=== PATIENT | female | born 1935 | race Two or more races ===

== ENCOUNTER 2017-06-17 17:13 | Emergency (ER) | payer MEDICARE, OTHER ==
[~2017-06-17] VITALS: Ht 160 cm; Wt 63.0 kg
[2017-06-17] MEDS ORDERED: IV NORMAL SALINE 500ML BAG 500 ML IV ONE (18:15)
[2017-06-17 18:40] LABS: BASO % 0 % (0-3); EOS % 0 % (0-3); HEMATOCRIT 37.1 % (36.0-47.0); HEMOGLOBIN 12.6 g/dL (12.0-15.5); LYMPH # 1.2 x10^3/uL (1.0-4.8); LYMPH % 11 % (24-48); MEAN CORPUSCULAR HEMOGLOBIN 32 pg (25-35); MEAN CORPUSCULAR HGB CONC 34 g/dL (31-37); MEAN CORPUSCULAR VOLUME 93 fL (79-100); MONO % 6 % (0-9); NEUT % 82 % (31-73); PLATELET COUNT 185 x10^3/uL (140-400); RED CELL DISTRIBUTION WIDTH 13.4 % (11.5-14.5); WHITE BLOOD COUNT 10.8 x10^3/uL (4.0-11.0)
[2017-06-17 18:51] LABS: CALCIUM 9.4 mg/dL (8.5-10.1); CREATININE 1.1 mg/dL (0.6-1.0); GFR 47.4
--- NOTE | 2017-06-17 18:52 | PHYS DOC ---
Past Medical History Past Medical History: Diabetes-Type II, GERD, High Cholesterol, Hypertension Past Surgical History: No Surgical History Alcohol Use: None Drug Use: None Adult General Chief Complaint Chief Complaint: HYPERTENSION HPI HPI Patient is a 81 year old female presents with complaints of feeling dizzy and nauseous, she noted her blood pressure was high. Patient denies any pain or focal weakness. By the time of the ED evaluation the patient felt improved and her systolic blood pressure was 167 without any intervention. Patient states she is compliant with her medications Review of Systems Review of Systems Constitutional: Denies fever or chills [] Eyes: Denies change in visual acuity, redness, or eye pain [] HENT: Denies nasal congestion or sore throat [] Respiratory: Denies cough or shortness of breath [] Cardiovascular: No chest pain GI: Denies abdominal pain,, vomiting, bloody stools or diarrhea . Yes to nausea : Denies dysuria or hematuria [] Musculoskeletal: Denies back pain or joint pain [] Integument: Denies rash or skin lesions [] Neurologic: Denies headache, focal weakness or sensory changes. Yes to dizziness Current Medications Current Medications Current Medications Medications (Trade) Dose Ordered Sig/Mitzi Start Time Stop Time Status Last Admin Dose Admin Sodium Chloride 500 ml @ 500 mls/hr 1X ONCE 06/17/17 18:15 06/17/17 19:14 DC 06/17/17 18:48 500 MLS/HR Allergies Allergies Allergies Coded Allergies Type Severity Reaction Last Updated Verified Penicillins Allergy Intermediate 12/02/15 Yes Physical Exam Physical Exam Constitutional: Well developed, well nourished, no acute distress, non-toxic appearance. [] HENT: Normocephalic, atraumatic, bilateral external ears normal, oropharynx dry , no oral exudates, nose normal. [] Eyes: PERRLA, EOMI, conjunctiva normal, no discharge. [] Neck: Normal range of motion, no tenderness, supple, no stridor. No LAD, no meningeal signs Cardiovascular:Heart rate regular rhythm, no murmur, equal pulses, normal perfusion Lungs & Thorax: Bilateral breath sounds clear to auscultation, no tachypnea Abdomen: Bowel sounds normal, soft, no tenderness, no masses, no pulsatile masses. [] Skin: Warm, dry, no erythema, no rash. [] Back: No tenderness, no CVA tenderness. [] Extremities: No tenderness, no cyanosis, no DVT, ROM intact, no edema. [] Neurologic: Alert and oriented X 3, normal motor function,, no focal deficits noted. Patient ambulates in the emergency department with normal gait and without assistance Psychologic: Affect normal, judgement normal, mood normal. [] Current Patient Data Vital Signs Vital Signs Date Time Temp Pulse Resp B/P (MAP) Pulse Ox O2 Delivery O2 Flow Rate FiO2 06/17/17 18:50 76 14 97 06/17/17 17:22 223/93 (136) Room Air Lab Values Laboratory Tests Test 06/17/17 18:29 White Blood Count 10.8 x10^3/uL (4.0-11.0) Red Blood Count 4.00 x10^6/uL (3.50-5.40) Hemoglobin 12.6 g/dL (12.0-15.5) Hematocrit 37.1 % (36.0-47.0) Mean Corpuscular Volume 93 fL (79-100) Mean Corpuscular Hemoglobin 32 pg (25-35) Mean Corpuscular Hemoglobin Concent 34 g/dL (31-37) Red Cell Distribution Width 13.4 % (11.5-14.5) Platelet Count 185 x10^3/uL (140-400) Neutrophils (%) (Auto) 82 % (31-73) H Lymphocytes (%) (Auto) 11 % (24-48) L Monocytes (%) (Auto) 6 % (0-9) Eosinophils (%) (Auto) 0 % (0-3) Basophils (%) (Auto) 0 % (0-3) Neutrophils # (Auto) 8.8 x10^3uL (1.8-7.7) H Lymphocytes # (Auto) 1.2 x10^3/uL (1.0-4.8) Monocytes # (Auto) 0.7 x10^3/uL (0.0-1.1) Eosinophils # (Auto) 0.0 x10^3/uL (0.0-0.7) Basophils # (Auto) 0.0 x10^3/uL (0.0-0.2) Sodium Level 132 mmol/L (136-145) L Potassium Level 4.0 mmol/L (3.5-5.1) Chloride Level 96 mmol/L (98-107) L Carbon Dioxide Level 28 mmol/L (21-32) Anion Gap 8 (6-14) Blood Urea Nitrogen 19 mg/dL (7-20) Creatinine 1.1 mg/dL (0.6-1.0) H Estimated GFR (Cockcroft-Gault) 47.4 BUN/Creatinine Ratio 17 (6-20) Glucose Level 174 mg/dL (70-99) H Calcium Level 9.4 mg/dL (8.5-10.1) Magnesium Level 1.8 mg/dL (1.8-2.4) Total Bilirubin 0.3 mg/dL (0.2-1.0) Aspartate Amino Transferase (AST) 17 U/L (15-37) Alanine Aminotransferase (ALT) 25 U/L (14-59) Alkaline Phosphatase 113 U/L (46-116) Troponin I Quantitative 0.048 ng/mL (0.000-0.055) WM-Yil-B-Type Natriuretic Peptide 144 pg/mL (0-449) Total Protein 7.8 g/dL (6.4-8.2) Albumin 4.0 g/dL (3.4-5.0) Albumin/Globulin Ratio 1.1 (1.0-1.7) Laboratory Tests 06/17/17 18:29 Laboratory Tests 06/17/17 18:29 EKG EKG 1901 SR, 74, no stemi[] Radiology/Procedures Radiology/Procedures CT head: no acute findings CXR: no acute findings[] Course & Med Decision Making Course & Med Decision Making Pertinent Labs and Imaging studies reviewed. (See chart for details) 1943 pt ambulating in the ED in nad, normal gait and no assistance. Pt feels at her baseline and is requesting discharge home. Pt and family ok with discharge home, they agree to follow up with pcp for recheck and re-evaluation [] Dragon Disclaimer Dragon Disclaimer This electronic medical record was generated, in whole or in part, using a voice recognition dictation system. Departure Departure Impression: Primary Impression: Hypertension Additional Impressions: Dizziness Malaise Disposition: HOME, SELF-CARE Condition: IMPROVED Referrals: KULDIP VILLARREAL MD (PCP) Please follow with your PCP in one to 2 days for recheck and reevaluation, please continue to monitor her blood pressures at home and discussed those findings with your doctor and possible need for adjustment to your medication regimen. Patient Instructions: Dizziness, [id number], Hypertension Problem Qualifiers Jillian MCMANUS MD Jun 17, 2017 18:52
--- NOTE | 2017-06-17 18:55 | RAD ---
CT HEAD WO CONTRAST Clinical indications: Hypertensive EMERGENCY, history of hypertension, COMPARISON: None available. Technique: Noncontrast axial cross sectional scanning of the head was performed. PQRS compliance Statement One or more of the following individualized dose reduction techniques were utilized for this study: 1. Automated exposure control 2. Adjustment of the mA and/or kV according to patient size 3. Use of iterative reconstruction technique Findings: No acute intracranial hemorrhage or midline shift or mass-effect or hydrocephalus or extra-axial fluid collection is seen. No focal hypodense area or sulci effacement is seen to indicate an acute infarct or edema radiographically. No skull fracture or pneumocephalus is seen. No opacification of the mastoid sinuses or the paranasal sinuses is seen. The maxillary sinuses are not completely seen in this study. Impression: No acute intracranial abnormality is seen. Electronically signed by: Joe Brooks MD (06/17/2017 6:52 PM) [facility]
[2017-06-17 18:57] LABS: ALBUMIN/GLOBULIN RATIO 1.1 (1.0-1.7); MAGNESIUM 1.8 mg/dL (1.8-2.4); TOTAL BILIRUBIN 0.3 mg/dL (0.2-1.0); TOTAL PROTEIN 7.8 g/dL (6.4-8.2)
[2017-06-17 20:15] VITALS: BP 166/83
--- NOTE | 2017-06-18 07:37 | EKG ---
[facility] [address] [place] [address] Test Date: 2017-06-17 Test Time: 19:00:51 Pat Name: MIGUELINA CABRERA Department: Room: Gender: F Wood Gouger: : 1935 Requested By: Jillian MCMANUS Order Number: [id number] Reading MD: Craig Willard Measurements Intervals [place] Rate: 74 P: 32 OK: 210 QRS: -15 QRSD: 92 T: 73 QT: 386 QTc: 429 Interpretive Statements SINUS RHYTHM POSSIBLE PRIOR INFERIOR INFARCT Electronically Signed On 06-19-2017 8:34:37 CDT by Craig Willard
--- NOTE | 2017-06-18 07:44 | RAD ---
Indication nausea dizziness. History of hypertension. A single view of the chest was obtained. No prior imaging of the chest is available. Heart size and pulmonary vessels are normal. The trachea is slightly displaced to the right. This may be secondary to vascular tortuosity. If mediastinal pathology is suspect a CT examination would be advised. There is no consolidated pneumonia significant pleural fluid or pneumothorax. IMPRESSION: No acute finding apparent in the chest. Trachea slightly deviated to the right. See above discussion.
== END 2017-06-17 20:20 | disposition home or self-care (01) ==
LOC: ER 17:13
DX: R42 Dizziness and giddiness (principal); I10 Essential (primary) hypertension; R53.81 Other malaise; E11.9 Type 2 diabetes mellitus without complications; K21.9 Gastro-esophageal reflux disease without esophagitis; E78.00 Pure hypercholesterolemia, unspecified; Z88.0 Allergy status to penicillin
CPT/HCPCS: 36415; 70450; 71010; 80053; 83735; 83880; 84484; 85025; 93005; 96360; 99285; J7040

== ENCOUNTER 2018-07-19 21:36 | Inpatient (IN) | payer MEDICARE, OTHER ==
[~2018-07-19] VITALS: Ht 157.5 cm; Wt 59.9 kg
[2018-07-19 22:17] LABS: BASO % 0 % (0-3); EOS # 0.1 x10^3/uL (0.0-0.7); EOS % 2 % (0-3); HEMOGLOBIN 10.6 g/dL (12.0-15.5); LYMPH # 1.4 x10^3/uL (1.0-4.8); LYMPH % 22 % (24-48); MEAN CORPUSCULAR HEMOGLOBIN 33 pg (25-35); MEAN CORPUSCULAR HGB CONC 34 g/dL (31-37); MEAN CORPUSCULAR VOLUME 95 fL (79-100); MONO # 0.6 x10^3/uL (0.0-1.1); MONO % 10 % (0-9); NEUT # 4.1 x10^3uL (1.8-7.7); NEUT % 66 % (31-73); PLATELET COUNT 157 x10^3/uL (140-400); RED BLOOD COUNT 3.26 x10^6/uL (3.50-5.40); RED CELL DISTRIBUTION WIDTH 13.9 % (11.5-14.5); WHITE BLOOD COUNT 6.2 x10^3/uL (4.0-11.0)
[2018-07-19 22:18] LABS: BILIRUBIN,URINE NEGATIVE (NEG); CLARITY,URINE CLEAR; COLOR,URINE YELLOW; NITRITE,URINE NEGATIVE (NEG); PROTEIN,URINE 100 mg/dL (NEG-TRACE); UROBILINOGEN,URINE 0.2 mg/dL (0.2 mg/dL)
[2018-07-19 22:27] LABS: BACTERIA,URINE 0 /HPF (0-FEW); SQUAMOUS EPITHELIAL CELL,UR OCC /LPF; WBC,URINE 0 /HPF (0-4)
[2018-07-19 22:28] LABS: GFR 52.8; POTASSIUM 3.9 mmol/L (3.5-5.1)
[2018-07-19] MEDS ORDERED: LABETALOL 20 MG/4 ML DISP.SYRIN. IVP ONE (22:30)
[2018-07-19 22:34] LABS: ALBUMIN 3.7 g/dL (3.4-5.0); ALBUMIN/GLOBULIN RATIO 1.1 (1.0-1.7); TOTAL BILIRUBIN 0.4 mg/dL (0.2-1.0)
--- NOTE | 2018-07-19 22:36 | PHYS DOC ---
Past Medical History Past Medical History: Diabetes-Type II, GERD, High Cholesterol, Hypertension Past Surgical History: No Surgical History Alcohol Use: None Drug Use: None Adult General Chief Complaint Chief Complaint: HYPERTENSION HPI HPI Patient is a 82 year old Azeri speaking female accompanied by her daughter who presents for evaluation of elevated BP, LU, dizziness, and diffuse abd pain , which have persisted since onset around 1 pm today. The patient has a hx of DM type 2, HTN and Hypercholestemia. Family reports that when they initially noted her BP to be elevated this afternoon they gave the patient a dose of her ARB. This lowered her BP from 200/100 to around 170/90 but it then returned above 200. The patient describes her abd pain as bloating and fullness, and denies a tearing sensation. She denies any fevers, CP, SOB, diarrhea, vomiting and dysuria. She denies any numbness or weakness. Review of Systems Review of Systems Constitutional: Denies fever or chills [] Eyes: Denies change in visual acuity, redness, or eye pain [] HENT: Denies nasal congestion or sore throat [] Respiratory: Denies cough or shortness of breath [] Cardiovascular: No additional information not addressed in HPI [] GI: +abd pain, denies nausea, vomiting, bloody stools or diarrhea [] : Denies dysuria or hematuria [] Musculoskeletal: Denies back pain or joint pain [] Integument: Denies rash or skin lesions [] Neurologic: + LU and dizziness. Denies focal weakness or sensory changes [] Endocrine: Denies polyuria or polydipsia [] All other systems were reviewed and found to be within normal limits, except as documented in this note. Current Medications Current Medications Current Medications Medications (Trade) Dose Ordered Sig/Mitzi Start Time Stop Time Status Last Admin Dose Admin Fentanyl Citrate (Fentanyl 2ml Vial) 50 mcg PRN Q2HR PRN 07/19/18 23:30 07/20/18 00:10 50 MCG Info (CONTRAST GIVEN -- Rx MONITORING) 1 each PRN DAILY PRN 07/19/18 23:30 07/21/18 23:29 Iohexol (Omnipaque 300 Mg/ml) 75 ml 1X ONCE 07/19/18 23:30 07/19/18 23:31 DC 07/19/18 23:30 75 ML Labetalol HCl (Normodyne Iv Push) 20 mg PRN Q2HR PRN 07/19/18 23:30 07/20/18 00:56 20 MG Nitroglycerin (Nitrostat) 0.4 mg PRN Q5MIN PRN 07/19/18 23:30 07/20/18 23:29 Nitroglycerin/ Dextrose 250 ml @ 0 mls/hr 1X ONCE 07/19/18 22:45 07/19/18 23:29 DC Allergies Allergies Allergies Coded Allergies Type Severity Reaction Last Updated Verified Penicillins Allergy Intermediate 12/02/15 Yes Physical Exam Physical Exam Constitutional: Well developed, well nourished, no acute distress, non-toxic appearance. [] HENT: Normocephalic, atraumatic, bilateral external ears normal, oropharynx moist, no oral exudates, nose normal. [] Eyes: PERRLA, EOMI, conjunctiva normal, no discharge. [] Neck: Normal range of motion, no tenderness, supple, no stridor. [] Cardiovascular:Heart rate regular rhythm, no murmur [] Lungs & Thorax: Bilateral breath sounds clear to auscultation [] Abdomen: Mild diffuse abd TTP, no rigidity, rebound or guarding. Bowel sounds normal, soft, no masses, no pulsatile masses. [] Skin: Warm, dry, no erythema, no rash. [] Back: No tenderness, no CVA tenderness. [] Extremities: No tenderness, no cyanosis, no clubbing, ROM intact, no edema. [] Neurologic: Alert and oriented X 3, normal motor function, normal sensory function, no focal deficits noted. CN 2-12 grossly intact bilaterally. Psychologic: Affect normal, judgement normal, mood normal. [] Current Patient Data Vital Signs Vital Signs Date Time Temp Pulse Resp B/P (MAP) Pulse Ox O2 Delivery O2 Flow Rate FiO2 07/19/18 23:20 74 16 97 07/19/18 22:28 236/106 07/19/18 21:40 98.2 Room Air 98.2 Lab Values Laboratory Tests Test 07/19/18 22:00 White Blood Count 6.2 x10^3/uL (4.0-11.0) Red Blood Count 3.26 x10^6/uL (3.50-5.40) L Hemoglobin 10.6 g/dL (12.0-15.5) L Hematocrit 31.0 % (36.0-47.0) L Mean Corpuscular Volume 95 fL (79-100) Mean Corpuscular Hemoglobin 33 pg (25-35) Mean Corpuscular Hemoglobin Concent 34 g/dL (31-37) Red Cell Distribution Width 13.9 % (11.5-14.5) Platelet Count 157 x10^3/uL (140-400) Neutrophils (%) (Auto) 66 % (31-73) Lymphocytes (%) (Auto) 22 % (24-48) L Monocytes (%) (Auto) 10 % (0-9) H Eosinophils (%) (Auto) 2 % (0-3) Basophils (%) (Auto) 0 % (0-3) Neutrophils # (Auto) 4.1 x10^3uL (1.8-7.7) Lymphocytes # (Auto) 1.4 x10^3/uL (1.0-4.8) Monocytes # (Auto) 0.6 x10^3/uL (0.0-1.1) Eosinophils # (Auto) 0.1 x10^3/uL (0.0-0.7) Basophils # (Auto) 0.0 x10^3/uL (0.0-0.2) Urine Collection Type Unknown Urine Color Yellow Urine Clarity Clear Urine pH 7.0 Urine Specific [place] 1.010 Urine Protein 100 mg/dL (NEG-TRACE) Urine Glucose (UA) Negative mg/dL (NEG) Urine Ketones (Stick) Negative mg/dL (NEG) Urine Blood Small (NEG) Urine Nitrite Negative (NEG) Urine Bilirubin Negative (NEG) Urine Urobilinogen Dipstick 0.2 mg/dL (0.2 mg/dL) Urine Leukocyte Esterase Negative (NEG) Urine RBC 3-5 /HPF (0-2) Urine WBC 0 /HPF (0-4) Urine Squamous Epithelial Cells Occ /LPF Urine Bacteria 0 /HPF (0-FEW) Sodium Level 134 mmol/L (136-145) L Potassium Level 3.9 mmol/L (3.5-5.1) Chloride Level 96 mmol/L (98-107) L Carbon Dioxide Level 26 mmol/L (21-32) Anion Gap 12 (6-14) Blood Urea Nitrogen 16 mg/dL (7-20) Creatinine 1.0 mg/dL (0.6-1.0) Estimated GFR (Cockcroft-Gault) 52.8 BUN/Creatinine Ratio 16 (6-20) Glucose Level 136 mg/dL (70-99) H Calcium Level 9.0 mg/dL (8.5-10.1) Total Bilirubin 0.4 mg/dL (0.2-1.0) Aspartate Amino Transferase (AST) 24 U/L (15-37) Alanine Aminotransferase (ALT) 18 U/L (14-59) Alkaline Phosphatase 98 U/L (46-116) Troponin I Quantitative 0.118 ng/mL (0.000-0.055) Total Protein 7.0 g/dL (6.4-8.2) Albumin 3.7 g/dL (3.4-5.0) Albumin/Globulin Ratio 1.1 (1.0-1.7) Lipase 193 U/L (73-393) Laboratory Tests 07/19/18 22:00 Laboratory Tests 07/19/18 22:00 EKG EKG []Normal sinus rhythm rate of [address] changes lateral no STEMI interpreted by me time of encounter Radiology/Procedures Radiology/Procedures [] Impressions: FINDINGS: Chest: No evidence of pneumothorax. Linear opacity left lung which could be from scarring or atelectasis. Calcific atherosclerosis including of coronary arteries. No thoracic aortic aneurysm or dissection flap. There are some prominent lymph nodes in the mediastinum. For example anterior to the chery measuring approximately 10 mm short axis. Abdomen and pelvis: Severe calcific atherosclerosis without abdominal aortic aneurysm or dissection flap. No intrahepatic bile duct dilation. Postcholecystectomy changes. No peripancreatic fluid collection. Heterogenous attenuation of the spleen which could be from phase of contrast. No left-sided hydronephrosis. Urinary bladder is partially distended. Prominent right extrarenal pelvis. Colonic diverticulosis. No periappendiceal inflammation. Degenerative changes throughout the spine with mild scoliotic curvature as well as multilevel central canal and neural foraminal stenosis. IMPRESSION: 1. No evidence of aortic dissection. Calcific atherosclerosis is identified. 2. Borderline enlarged lymph nodes in mediastinum. Electronically signed by: Frank Andrade MD (07/20/2018 12:00 AM) [facility] DICTATED and SIGNED BY: FRANK ANDRADE MD DATE: 07/19/18 2722 MPARISON: June 17, 2017 TECHNIQUE: Axial CT images obtained through the head without intravenous contrast. One or more of the following individualized dose reduction techniques were utilized for this examination: 1. Automated exposure control; 2. Adjustment of the mA and/or kV according to patient size; 3. Use of iterative reconstruction technique. FINDINGS: No intracranial hemorrhage. No midline shift. Basal cisterns patent. Ventricles and sulci are unremarkable. No acute osseous abnormality. Orbits and paranasal sinuses unremarkable. IMPRESSION: 1. No acute intracranial hemorrhage. 2. Scattered foci of low attenuation of the white matter. Nonspecific but can be seen with chronic small vessel ischemic disease. Electronically signed by: Frank Andrade MD (07/19/2018 11:42 PM) [facility] DICTATED and SIGNED BY: FRANK ANDRADE MD DATE: 07/19/18 2334 Course & Med Decision Making Course & Med Decision Making Pertinent Labs and Imaging studies reviewed. (See chart for details) []8404 with a history of hypertension who is presenting to the emergency room with elevated blood pressures as high as 240 systolic on initial evaluation patient had headache as well as some vague upper abdominal discomfort concerning for cardiac etiology. Pain scanning was performed due to severe hypertension and several vague symptoms. No signs of cranial hemorrhage or dissection. Troponin was elevated slightly I suspect this is related to hypertensive effect. I spoke with Dr. manning covering for Dr. Levine will admit to the hospital for blood pressure control serial troponins etc. On reevaluation the emergency room the patient's blood pressure was actually getting better into the 180 systolic range she was still having a headache but she is neurologically intact and she says that her vague upper abdominal discomfort is actually getting better now. This makes sense that she likely was having some cardiac strain Family is aware of the plan and agreeable to it. pt took aspirin prior to arrival. Critical care time was 40 minutes exclusive of procedures. For management of severe hypertension with end organ damage. Dragon Disclaimer Dragon Disclaimer This electronic medical record was generated, in whole or in part, using a voice recognition dictation system. Departure Departure Impression: Primary Impression: Hypertensive urgency Disposition: ADMITTED INPATIENT Admitting Physician: Oneida Manning Condition: STABLE Referrals: KULDIP VILLARREAL MD (PCP) LAVERN PAZ MD Jul 19, 2018 22:36
[2018-07-19] MEDS ORDERED: NITROGLYCERIN PREMIX 250 ML IV ONE (22:45)
--- NOTE | 2018-07-19 22:50 | RAD ---
AP portable chest 07/19/2018. Reason for exam: Hypertension and shortness of breath. Comparison is made with a study of 06/17/2017. Depth of inspiration is fairly shallow, probably accounting for slightly increased prominence of lung markings. No new infiltrate or effusion is seen. Heart size and pulmonary vascularity appear normal. IMPRESSION: No acute findings. Electronically signed by: Greg Oconnor Jr., MD (07/19/2018 10:47 PM) [facility]
[2018-07-19] MEDS ORDERED: IOHEXOL 300 MG/ML 100ML VIAL. IV ONE (23:30)
[2018-07-19] MEDS ORDERED: CONTRAST GIVEN. MC PRN (23:30)
[2018-07-19] MEDS ORDERED: NITROGLYCERIN SUBLINGUAL 0.4 MG BOTTLE OF 25. SL PRN (23:30)
[2018-07-19] MEDS ORDERED: fentaNYL PF VIAL 100 MCG/2 ML VIAL IV PRN (23:30)
[2018-07-19] MEDS ORDERED: NITROGLYCERIN OINT 1 GM PACKET. TP ONE (23:45)
--- NOTE | 2018-07-19 23:46 | RAD ---
INDICATION: headache; high blood pressure COMPARISON: June 17, 2017 TECHNIQUE: Axial CT images obtained through the head without intravenous contrast. One or more of the following individualized dose reduction techniques were utilized for this examination: 1. Automated exposure control; 2. Adjustment of the mA and/or kV according to patient size; 3. Use of iterative reconstruction technique. FINDINGS: No intracranial hemorrhage. No midline shift. Basal cisterns patent. Ventricles and sulci are unremarkable. No acute osseous abnormality. Orbits and paranasal sinuses unremarkable. IMPRESSION: 1. No acute intracranial hemorrhage. 2. Scattered foci of low attenuation of the white matter. Nonspecific but can be seen with chronic small vessel ischemic disease. Electronically signed by: Aaron Silver MD (07/19/2018 11:42 PM) [facility]
[2018-07-20] VITALS (8 sets, daily range): BP systolic 132–217; BP diastolic 47–79
--- NOTE | 2018-07-20 00:04 | RAD ---
INDICATION: chest/abd pain, [id number] 75ml, no priors COMPARISON: None. TECHNIQUE: Axial CT images obtained through the chest, abdomen and pelvis with intravenous contrast. Three-dimensional images process per angiogram protocol.. One or more of the following individualized dose reduction techniques were utilized for this examination: 1. Automated exposure control; 2. Adjustment of the mA and/or kV according to patient size; 3. Use of iterative reconstruction technique. FINDINGS: Chest: No evidence of pneumothorax. Linear opacity left lung which could be from scarring or atelectasis. Calcific atherosclerosis including of coronary arteries. No thoracic aortic aneurysm or dissection flap. There are some prominent lymph nodes in the mediastinum. For example anterior to the chery measuring approximately 10 mm short axis. Abdomen and pelvis: Severe calcific atherosclerosis without abdominal aortic aneurysm or dissection flap. No intrahepatic bile duct dilation. Postcholecystectomy changes. No peripancreatic fluid collection. Heterogenous attenuation of the spleen which could be from phase of contrast. No left-sided hydronephrosis. Urinary bladder is partially distended. Prominent right extrarenal pelvis. Colonic diverticulosis. No periappendiceal inflammation. Degenerative changes throughout the spine with mild scoliotic curvature as well as multilevel central canal and neural foraminal stenosis. IMPRESSION: 1. No evidence of aortic dissection. Calcific atherosclerosis is identified. 2. Borderline enlarged lymph nodes in mediastinum. Electronically signed by: Aaron Silver MD (07/20/2018 12:00 AM) [facility]
[2018-07-20] MEDS ORDERED: ASPIRIN CHEWABLE 81 MG TABLET. PO ONE (00:15)
[2018-07-20] MEDS ORDERED: ONDANSETRON PF 4 MG/2 ML VIAL. IV PRN (00:45)
[2018-07-20] MEDS: LABETALOL 20 MG/4 ML DISP.SYRIN. IVP PRN ×2 (00:56→20:54)
[2018-07-20] MEDS ORDERED: ATOR10TA PO (02:06)
[2018-07-20] MEDS ORDERED: CAND32TA19 PO (02:06)
[2018-07-20] MEDS ORDERED: PANT40GR PO (02:06)
[2018-07-20] MEDS ORDERED: METO-239 PO (02:06)
--- NOTE | 2018-07-20 08:21 | EKG ---
[facility] [address] [place] [address] Test Date: 2018-07-19 Test Time: 22:05:55 Pat Name: MIGUELINA CABRERA Department: Room: 263 1 Gender: Female Cath Lab Nurse: : 1935 Requested By: LAVERN PAZ Order Number: [id number] Reading MD: Ovidio Tellez Measurements Intervals [place] Rate: 63 P: -29 WI: 196 QRS: -26 QRSD: 94 T: 139 QT: 398 QTc: 410 Interpretive Statements SINUS RHYTHM LEFTWARD AXIS CONSIDER LEFT VENTRICULAR HYPERTROPHY ST & T ABNORMALITY, CONSIDER HIGH LATERAL ISCHEMIA OR LEFT VENTRICULAR STRAIN T ABNORMALITY IN INFERIOR LEADS ABNORMAL ECG Electronically Signed On 07-21-2018 8:59:58 SCIENTIST IMMUNOLOGY by Ovidio Tellez
--- NOTE | 2018-07-20 08:22 | EKG ---
[facility] [address] [place] [address] Test Date: 2018-07-19 Test Time: 22:45:38 Pat Name: MIGUELINA CABRERA Department: Room: 263 1 Gender: Female Political Director: : 1935 Requested By: LAVERN PAZ Order Number: [id number] Reading MD: Ovidio Tellez Measurements Intervals [place] Rate: 65 P: -32 CT: 198 QRS: -16 QRSD: 96 T: 90 QT: 406 QTc: 427 Interpretive Statements SINUS RHYTHM LEFTWARD AXIS CONSIDER LEFT VENTRICULAR HYPERTROPHY QRS(T) CONTOUR ABNORMALITY CONSIDER ANTEROLATERAL MYOCARDIAL DAMAGE POSSIBLY ABNORMAL ECG Electronically Signed On 07-21-2018 9:00:10 INSURANCE SALES SUPERVISOR by Ovidio Tellez
[2018-07-20] MEDS ORDERED: ACETAMINOPHEN 500 MG TABLET PO PRN (08:30)
[2018-07-20] MEDS: METOPROLOL SUCC 24HR ER 25 MG TAB.ER.24H. PO SCH (09:24)
[2018-07-20] MEDS: LOSARTAN POTASSIUM 50 MG TABLET. PO SCH (09:24)
--- NOTE | 2018-07-20 12:26 | PDOC ---
PROGRESS NOTES Subjective Subjective Patient reports headache is much better with Tylenol. Denies abdominal pain at present. Objective Objective Vital Signs Date Time Temp Pulse Resp B/P (MAP) Pulse Ox O2 Delivery O2 Flow Rate FiO2 07/20/18 10:45 97.9 65 18 165/55 (91) 96 Room Air 97.9 Intake and Output 07/20/18 07:00 Intake Total 100 ml Output Total 100 ml Balance 0 ml Intake Oral 100 ml Output Emesis 100 ml # Voids 2 Physical Exam Abdomen: Normal bowel sounds, Soft, Other (scant diffuse lower abdominal TTP without guarding or rebound.) Heart: Regular rate Extremities: No edema General: Alert, Oriented X3, No acute distress Lungs: Clear to auscultation Assessment Assessment Problems Medical Problems: (1) Hypertensive urgency Status: Acute Plan Plan of Care 1. Hypertensive urgency - much improved. Took her usual po meds this AM. BP still mildly elevated, will add Norvasc and follow. CT angiography unremarkable. 2. abdominal pain - no acute findings on CT yesterday. Family reported that she had been started on Protonix by Dr Drummond recently and may not have been taking this. Resume. 3. glucose intolerance - has been diet-controlled for her. 4. Hx CAD and [place] - stable, no ischemic changes on EKG per ER report and Troponin basically WNL. Comment Review of Relevant I have reviewed the following items yumiko (where applicable) has been applied. Labs Laboratory Tests Test 07/19/18 22:00 07/20/18 02:45 07/20/18 04:00 07/20/18 08:58 White Blood Count 6.2 x10^3/uL (4.0-11.0) Red Blood Count 3.26 x10^6/uL (3.50-5.40) Hemoglobin 10.6 g/dL (12.0-15.5) Hematocrit 31.0 % (36.0-47.0) Mean Corpuscular Volume 95 fL (79-100) Mean Corpuscular Hemoglobin 33 pg (25-35) Mean Corpuscular Hemoglobin Concent 34 g/dL (31-37) Red Cell Distribution Width 13.9 % (11.5-14.5) Platelet Count 157 x10^3/uL (140-400) Neutrophils (%) (Auto) 66 % (31-73) Lymphocytes (%) (Auto) 22 % (24-48) Monocytes (%) (Auto) 10 % (0-9) Eosinophils (%) (Auto) 2 % (0-3) Basophils (%) (Auto) 0 % (0-3) Neutrophils # (Auto) 4.1 x10^3uL (1.8-7.7) Lymphocytes # (Auto) 1.4 x10^3/uL (1.0-4.8) Monocytes # (Auto) 0.6 x10^3/uL (0.0-1.1) Eosinophils # (Auto) 0.1 x10^3/uL (0.0-0.7) Basophils # (Auto) 0.0 x10^3/uL (0.0-0.2) Urine Collection Type Unknown Urine Color Yellow Urine Clarity Clear Urine pH 7.0 Urine Specific [place] 1.010 Urine Protein 100 mg/dL (NEG-TRACE) Urine Glucose (UA) Negative mg/dL (NEG) Urine Ketones (Stick) Negative mg/dL (NEG) Urine Blood Small (NEG) Urine Nitrite Negative (NEG) Urine Bilirubin Negative (NEG) Urine Urobilinogen Dipstick 0.2 mg/dL (0.2 mg/dL) Urine Leukocyte Esterase Negative (NEG) Urine RBC 3-5 /HPF (0-2) Urine WBC 0 /HPF (0-4) Urine Squamous Epithelial Cells Occ /LPF Urine Bacteria 0 /HPF (0-FEW) Sodium Level 134 mmol/L (136-145) Potassium Level 3.9 mmol/L (3.5-5.1) Chloride Level 96 mmol/L (98-107) Carbon Dioxide Level 26 mmol/L (21-32) Anion Gap 12 (6-14) Blood Urea Nitrogen 16 mg/dL (7-20) Creatinine 1.0 mg/dL (0.6-1.0) Estimated GFR (Cockcroft-Gault) 52.8 BUN/Creatinine Ratio 16 (6-20) Glucose Level 136 mg/dL (70-99) Calcium Level 9.0 mg/dL (8.5-10.1) Total Bilirubin 0.4 mg/dL (0.2-1.0) Aspartate Amino Transf (AST/SGOT) 24 U/L (15-37) Alanine Aminotransferase (ALT/SGPT) 18 U/L (14-59) Alkaline Phosphatase 98 U/L (46-116) Troponin I Quantitative 0.118 ng/mL (0.000-0.055) 0.118 ng/mL (0.000-0.055) 0.119 ng/mL (0.000-0.055) Total Protein 7.0 g/dL (6.4-8.2) Albumin 3.7 g/dL (3.4-5.0) Albumin/Globulin Ratio 1.1 (1.0-1.7) Lipase 193 U/L (73-393) Glucose (Fingerstick) 98 mg/dL (70-99) Test 07/20/18 12:03 Glucose (Fingerstick) 108 mg/dL (70-99) Laboratory Tests Test 07/19/18 22:00 07/20/18 02:45 07/20/18 04:00 07/20/18 08:58 White Blood Count 6.2 x10^3/uL (4.0-11.0) Red Blood Count 3.26 x10^6/uL (3.50-5.40) Hemoglobin 10.6 g/dL (12.0-15.5) Hematocrit 31.0 % (36.0-47.0) Mean Corpuscular Volume 95 fL (79-100) Mean Corpuscular Hemoglobin 33 pg (25-35) Mean Corpuscular Hemoglobin Concent 34 g/dL (31-37) Red Cell Distribution Width 13.9 % (11.5-14.5) Platelet Count 157 x10^3/uL (140-400) Neutrophils (%) (Auto) 66 % (31-73) Lymphocytes (%) (Auto) 22 % (24-48) Monocytes (%) (Auto) 10 % (0-9) Eosinophils (%) (Auto) 2 % (0-3) Basophils (%) (Auto) 0 % (0-3) Neutrophils # (Auto) 4.1 x10^3uL (1.8-7.7) Lymphocytes # (Auto) 1.4 x10^3/uL (1.0-4.8) Monocytes # (Auto) 0.6 x10^3/uL (0.0-1.1) Eosinophils # (Auto) 0.1 x10^3/uL (0.0-0.7) Basophils # (Auto) 0.0 x10^3/uL (0.0-0.2) Urine Collection Type Unknown Urine Color Yellow Urine Clarity Clear Urine pH 7.0 Urine Specific [place] 1.010 Urine Protein 100 mg/dL (NEG-TRACE) Urine Glucose (UA) Negative mg/dL (NEG) Urine Ketones (Stick) Negative mg/dL (NEG) Urine Blood Small (NEG) Urine Nitrite Negative (NEG) Urine Bilirubin Negative (NEG) Urine Urobilinogen Dipstick 0.2 mg/dL (0.2 mg/dL) Urine Leukocyte Esterase Negative (NEG) Urine RBC 3-5 /HPF (0-2) Urine WBC 0 /HPF (0-4) Urine Squamous Epithelial Cells Occ /LPF Urine Bacteria 0 /HPF (0-FEW) Sodium Level 134 mmol/L (136-145) Potassium Level 3.9 mmol/L (3.5-5.1) Chloride Level 96 mmol/L (98-107) Carbon Dioxide Level 26 mmol/L (21-32) Anion Gap 12 (6-14) Blood Urea Nitrogen 16 mg/dL (7-20) Creatinine 1.0 mg/dL (0.6-1.0) Estimated GFR (Cockcroft-Gault) 52.8 BUN/Creatinine Ratio 16 (6-20) Glucose Level 136 mg/dL (70-99) Calcium Level 9.0 mg/dL (8.5-10.1) Total Bilirubin 0.4 mg/dL (0.2-1.0) Aspartate Amino Transf (AST/SGOT) 24 U/L (15-37) Alanine Aminotransferase (ALT/SGPT) 18 U/L (14-59) Alkaline Phosphatase 98 U/L (46-116) Troponin I Quantitative 0.118 ng/mL (0.000-0.055) 0.118 ng/mL (0.000-0.055) 0.119 ng/mL (0.000-0.055) Total Protein 7.0 g/dL (6.4-8.2) Albumin 3.7 g/dL (3.4-5.0) Albumin/Globulin Ratio 1.1 (1.0-1.7) Lipase 193 U/L (73-393) Glucose (Fingerstick) 98 mg/dL (70-99) Test 07/20/18 12:03 Glucose (Fingerstick) 108 mg/dL (70-99) Medications Current Medications Labetalol HCl (Normodyne Iv Push) 20 mg 1X ONCE IVP Last administered on at 22:28; Start 07/19/18 at 22:30; Stop 07/19/18 at 22:31; Status DC Nitroglycerin/ Dextrose 250 ml @ 0 mls/hr 1X ONCE IV ; Start 07/19/18 at 22:45 ; Stop 07/19/18 at 23:29; Status DC Iohexol (Omnipaque 300 Mg/ml) 75 ml 1X ONCE IV Last administered on 07/19/18at 23:30; Start 07/19/18 at 23:30; Stop 07/19/18 at 23:31; Status DC Info (CONTRAST GIVEN -- Rx MONITORING) 1 each PRN DAILY PRN MC SEE COMMENTS; Start 07/19/18 at 23:30; Stop 07/21/18 at 23:29 Nitroglycerin (Nitrostat) 0.4 mg PRN Q5MIN PRN SL CHEST PAIN; Start 07/19/18 at 23:30; Stop 07/20/18 at 23:29 Labetalol HCl (Normodyne Iv Push) 20 mg PRN Q2HR PRN IVP HYPERTENSION, SEE COMMENTS Last administered on 07/20/18at 00:56; Start 07/19/18 at 23:30 Nitroglycerin (Nitro-Bid Oint) 1 inch 1X ONCE TP Last administered on at 00:10; Start 07/19/18 at 23:45; Stop 07/19/18 at 23:46; Status DC Fentanyl Citrate (Fentanyl 2ml Vial) 50 mcg PRN Q2HR PRN IV PAIN Last administered on 07/20/18at 00:10; Start 07/19/18 at 23:30; Stop 07/20/18 at 08:34 ; Status DC Aspirin (Children'S Aspirin) 324 mg 1X ONCE PO ; Start 07/20/18 at 00:15; Stop 07/20/18 at 00:16; Status DC Ondansetron HCl (Zofran) 4 mg PRN Q6HRS PRN IV NAUSEA/VOMITING Last administered on 07/20/18at 00:47; Start 07/20/18 at 00:45 Atorvastatin Calcium (Lipitor) 10 mg QHS PO ; Start 07/20/18 at 21:00 Metoprolol Succinate (Toprol Xl) 25 mg DAILY PO Last administered on 07/20/18at 09:24; Start 07/20/18 at 09:00 Losartan Potassium (Cozaar) 100 mg DAILY PO Last administered on 07/20/18at 09: 24; Start 07/20/18 at 09:00 Pantoprazole Sodium (Protonix) 40 mg DAILYAC PO ; Start 07/20/18 at 11:30 Acetaminophen (Tylenol) 1,000 mg PRN Q6HRS PRN PO pain Last administered on 07/20/18at 09:24; Start 07/20/18 at 08:30 Active Scripts Active Reported Protonix (Pantoprazole Sodium) 40 Mg Granpkt.dr 40 Mg PO DAILY Lipitor (Atorvastatin Calcium) 10 Mg Tablet 1 Tab PO QHS Metoprolol Succinate ( Xl ) (Metoprolol Succinate) 25 Mg Tab.er.24h 1 Tab PO DAILY Atacand (Candesartan Cilexetil) 32 Mg Tablet 1 Tab PO DAILY Vitals/I & O Vital Sign - Last 24 Hours 07/19/18 07/19/18 07/19/18 07/19/18 21:40 22:28 22:35 22:55 Temp 98.2 98.2 Pulse 64 72 68 70 Resp 16 16 16 B/P (MAP) 237/102 (147) 236/106 Pulse Ox 97 99 98 O2 Delivery Room Air 07/19/18 07/19/18 07/20/18 07/20/18 23:20 23:44 00:10 00:30 Pulse 74 72 Resp 16 16 16 Pulse Ox 97 97 97 O2 Delivery Room Air 07/20/18 07/20/18 07/20/18 07/20/18 00:40 00:56 00:56 01:51 Temp 98.2 98.2 Pulse 66 66 Resp 18 B/P (MAP) 217/79 217/79 (125) 132/59 (83) Pulse Ox 97 95 O2 Delivery Room Air Room Air 07/20/18 07/20/18 07/20/18 07/20/18 03:50 07:55 08:00 09:24 Temp 98.2 98.4 98.2 98.4 Pulse 61 61 61 Resp 18 18 B/P (MAP) 141/47 (78) 187/64 (105) 187/64 Pulse Ox 95 95 O2 Delivery Room Air Room Air Room Air 07/20/18 07/20/18 09:24 10:45 Temp 97.9 97.9 Pulse 61 65 Resp 18 B/P (MAP) 187/64 165/55 (91) Pulse Ox 96 O2 Delivery Room Air Intake and Output 07/19/18 07/19/18 07/20/18 15:00 23:00 07:00 Intake Total 100 ml Output Total 100 ml Balance 0 ml BERNABE BOWLING MD Jul 20, 2018 12:26
--- NOTE | 2018-07-20 13:04 | HP ---
ADMIT DATE: 07/19/2018 CHIEF COMPLAINT: Headache and elevated blood pressure. HISTORY OF PRESENT ILLNESS: The patient is an 82-year-old female who presented to the Emergency Room with the above complaint. Her symptoms had apparently started several hours previously. The patient's blood pressure was quite high at home when family checked it. They then gave some of her blood pressure medication, which did not help very much. It is unclear whether she had been taking her blood pressure medication on a daily basis. She also had a sensation of abdominal pain and fullness when her blood pressure was elevated. Initial evaluation in the Emergency Room showed her to have a blood pressure of 236/106. Treatment was started and she was admitted for further care. PAST MEDICAL HISTORY: Hypertension, hyperlipidemia, glucose intolerance, coronary artery disease with previous NV, GERD. PAST SURGICAL HISTORY: cholecystectomy. ALLERGIES: THE PATIENT IS ALLERGIC TO PENICILLIN. HOME MEDICATIONS: Atorvastatin 10 mg daily, Atacand 32 mg daily, Toprol-XL 25 mg daily, pantoprazole 40 mg daily. FAMILY HISTORY: Noncontributory. SOCIAL HISTORY: The patient is . She does not smoke cigarettes or drink alcohol to excess. She lives with her daughter. REVIEW OF SYSTEMS: This is difficult to obtain due to a language barrier as the patient is Kyrgyz speaking and her son who is with her, has very limited Slovenian. She does not seem to have fever or chills or recent illness. She denies chest pain or palpitations. She has not complained of cough or shortness of breath. Family told the night nurse that the patient had not been taking the Protonix that Dr. Drummond had started her on at her last office visit with him. Her abdominal pain appears to be diffusely in the lower abdominal area and she does not seem to be having heartburn with this. She did not have emesis at home. She has already received her flu shot this fall. PHYSICAL EXAMINATION: GENERAL: The patient is alert and appears oriented x 3, resting comfortably in bed in no acute distress. HEENT: PERRL, EOMI, sclerae clear. Oropharynx: Mucous membranes moist. NECK: Supple, without lymphadenopathy. CHEST: Clear to auscultation. CARDIOVASCULAR: Regular rhythm without murmur. ABDOMEN: Soft, normoactive bowel sounds are present. There is scant diffuse lower abdominal tenderness to palpation without guarding or rebound. EXTREMITIES: Without edema. ASSESSMENT AND PLAN: 1. Hypertensive urgency. The patient's blood pressure is much improved with IV and oral medication. She was given her usual oral blood pressure meds this morning. Her blood pressure is still mildly elevated. We will add amlodipine and follow her response to this. She had a CT angiography in the Emergency Room, which was unremarkable for acute changes. 2. Abdominal pain. There were no acute findings on CT yesterday. Nursing reports that she ate her diet with a good appetite today and the pain seems to not be present at this time. Continue to follow this. 3. Glucose intolerance. This has been diet controlled for her. 4. History of coronary artery disease and myocardial infarction, this is stable. There were no acute ischemic changes seen on EKG per Emergency Room report. The patient's troponin is basically within normal limits. Continue aspirin daily. BERNABE BOWLING MD DR: LINDA/laura JOB#: [id number] / [id number] DADA
[2018-07-20] MEDS: amLODIPine BESYLATE 5 MG TABLET PO SCH (13:56)
[2018-07-20] MEDS: PANTOPRAZOLE 40 MG TABLET.DR. PO SCH (15:07)
[2018-07-20] MEDS ORDERED: ATORVASTATIN CALCIUM 10 MG TABLET. PO SCH (21:00)
[2018-07-21 03:00] VITALS: BP 119/42
[2018-07-21 07:35] VITALS: BP 148/60
[2018-07-21] MEDS ORDERED: ASPIRIN 325 MG TABLET PO SCH (08:00)
[2018-07-21] MEDS: PANTOPRAZOLE 40 MG TABLET.DR. PO SCH (08:45)
[2018-07-21 08:46] VITALS: BP 148/60
[2018-07-21] MEDS: LOSARTAN POTASSIUM 50 MG TABLET. PO SCH (08:46)
[2018-07-21] MEDS: amLODIPine BESYLATE 5 MG TABLET PO SCH (08:46)
[2018-07-21] MEDS: METOPROLOL SUCC 24HR ER 25 MG TAB.ER.24H. PO SCH (08:46)
[2018-07-21] MEDS ORDERED: AMLO5TAB7 PO (09:09)
[2018-07-21] MEDS ORDERED: MAGNESIUM HYDROXIDE 2,400 MG/30 ML ORAL.SUSP. PO ONE (09:15)
== END 2018-07-21 10:37 | disposition home or self-care (01) | DRG 305 ==
LOC: ER 21:36 → 2 SOUTH 23:36
PROVIDERS: ADMIT Family Medicine; ATTEND Family Medicine
DX: I16.0 Hypertensive urgency (principal); E11.9 Type 2 diabetes mellitus without complications; K21.9 Gastro-esophageal reflux disease without esophagitis; E78.00 Pure hypercholesterolemia, unspecified; E78.5 Hyperlipidemia, unspecified; I10 Essential (primary) hypertension; I25.10 Atherosclerotic heart disease of native coronary artery without angina pectoris; I25.2 Old myocardial infarction; Z79.82 Long term (current) use of aspirin; Z79.899 Other long term (current) drug therapy; Z90.49 Acquired absence of other specified parts of digestive tract; Z88.0 Allergy status to penicillin
CPT/HCPCS: 36415; 70450; 71045; 71275; 74174; 80053; 81001; 82962; 83690; 84484; 85025; 93005; J2405; J3010; J3490; Q9967; 99285-25